=== PATIENT | female | born 1955 | race Hispanic/Latino ===

== ENCOUNTER 2017-07-26 07:42 | Day surgery (SDC) | payer MEDICARE ==
[~2017-07-26] VITALS: Ht 162.6 cm; Wt 93.0 kg
[2017-07-26 08:24] VITALS: BP 114/64
[2017-07-26] MEDS ORDERED: CLOP75TA32 PO (09:10)
[2017-07-26] MEDS ORDERED: LISI-617 PO (09:10)
[2017-07-26] MEDS ORDERED: ASPI-1026 PO (09:10)
[2017-07-26] MEDS ORDERED: LEVO50TA6 PO (09:10)
[2017-07-26] MEDS ORDERED: FURO-151 PO (09:10)
[2017-07-26] MEDS ORDERED: METF500T6 PO (09:10)
[2017-07-26] MEDS ORDERED: SIMV40TA5 PO (09:10)
[2017-07-26] MEDS ORDERED: TRAM50TA4 PO (09:10)
[2017-07-26] MEDS ORDERED: INSLAN SQ (09:10)
[2017-07-26] MEDS ORDERED: CITA-107 PO (09:10)
[2017-07-26] MEDS ORDERED: SODIUM CHLORIDE 0.9% 1000ML 1,000 ML IV ONE (09:22)
[2017-07-26] MEDS ORDERED: FENTANYL CITRATE PF 50 MCG/1 ML 2ML VIAL ONE (10:34)
[2017-07-26] MEDS ORDERED: PROPOFOL 10 MG/ML 20ML VIAL IV ONE (10:44)
== END 2017-07-26 11:20 | disposition home or self-care (01) ==
LOC: DAH 07:42
PROVIDERS: ATTEND Internal Medicine Gastroenterology
DX: K60.2 Anal fissure, unspecified (principal); Z68.41 Body mass index [BMI] 40.0-44.9, adult; I10 Essential (primary) hypertension; E78.5 Hyperlipidemia, unspecified; I25.10 Atherosclerotic heart disease of native coronary artery without angina pectoris; E11.9 Type 2 diabetes mellitus without complications; E03.9 Hypothyroidism, unspecified; Z86.73 Personal history of transient ischemic attack (TIA), and cerebral infarction without residual deficits; G43.909 Migraine, unspecified, not intractable, without status migrainosus; F32.9 Major depressive disorder, single episode, unspecified; Z95.1 Presence of aortocoronary bypass graft; Z79.899 Other long term (current) drug therapy
CPT/HCPCS: 45378; 82948 ×2; 93005; A4606; J2704; J3010; J7030

== ENCOUNTER 2017-07-27 11:45 | Emergency (ER) | payer MEDICARE ==
[~2017-07-27 11:45] MED LIST changes: -SODIUM CHLORIDE 0.9% 1000ML 1,000 ML IV ONE
[2017-07-27 12:12] LABS: BASOPHILS % (AUTO) 0.8 % (0.0-5.0); EOSINOPHILS % (AUTO) 2.1 % (0.0-8.0); HEMATOCRIT 35.1 % (36-48); LYMPHOCYTES % (AUTO) 37.9 % (21.0-51.0); MEAN CORPUSCULAR HEMOGLOBIN 31.4 pg (27.0-33.0); MEAN CORPUSCULAR HGB CONC 34.8 g/dL (32.0-36.0); MEAN CORPUSCULAR VOLUME 90.2 fL (79-99); MONOCYTES % (AUTO) 5.3 % (3.0-13.0); NEUTROPHILS % (AUTO) 53.9 % (40.0-77.0); NUCLEATED RED BLOOD CELLS 0.1 % (0.0-0.19); PLATELET COUNT (AUTO) 282 K/uL (130-400); RED BLOOD CELL COUNT(AUTO) 3.89 MIL/uL (4.00-5.50); RED CELL DISTRIBUTION WIDTH 14.1 % (11.0-15.5); WHITE BLOOD COUNT (AUTO) 6.2 K/uL (4.8-10.8)
[2017-07-27] MEDS ORDERED: NITROGLYCERIN 1GM/1 INCH PACKET TD ONE (12:17)
[2017-07-27] MEDS ORDERED: ASPIRIN 325 MG TABLET ONE (12:17)
[2017-07-27 12:42] LABS: CREATININE 0.6 mg/dL (0.5-1.5); POTASSIUM 3.8 mmol/L (3.5-5.1)
[2017-07-27 12:58] LABS: ALBUMIN 3.3 g/dL (3.5-5.0); BILIRUBIN,TOTAL 0.3 mg/dL (0.2-1.0); CREATINE KINASE MB 2.3 ng/mL (0.5-3.6); TOTAL PROTEIN, SERUM 6.6 g/dL (6.0-8.3)
== END 2017-07-27 16:19 | disposition home or self-care (01) ==
LOC: EDH 11:45
DX: R07.89 Other chest pain (principal); R05 Cough; I10 Essential (primary) hypertension; G43.909 Migraine, unspecified, not intractable, without status migrainosus; E11.9 Type 2 diabetes mellitus without complications; I25.810 Atherosclerosis of coronary artery bypass graft(s) without angina pectoris; E78.5 Hyperlipidemia, unspecified; Z86.73 Personal history of transient ischemic attack (TIA), and cerebral infarction without residual deficits; Z79.4 Long term (current) use of insulin; Z79.899 Other long term (current) drug therapy
CPT/HCPCS: 36415; 71045; 80053; 82550; 82553; 84484; 85025; 93005

== ENCOUNTER → 2017-07-27 | Day surgery (SDC) | payer MEDICARE ==
[~2017-07-27] VITALS: Ht 162.6 cm; Wt 93.0 kg
[~2017-07-27] MED LIST: ASPI-1026 PO; CITA-107 PO; CLOP75TA32 PO; FURO-151 PO; INSLAN SQ; LEVO50TA6 PO; LISI-617 PO; METF500T6 PO; SIMV40TA5 PO; SODIUM CHLORIDE 0.9% 1000ML 1,000 ML IV ONE; TRAM50TA4 PO
[2017-07-27 09:36] VITALS: BP 147/69
[2017-07-27 10:35] VITALS: BP 121/52
== END | disposition home or self-care (01) ==
LOC: SUH 08:21
PROVIDERS: ATTEND Internal Medicine Gastroenterology
DX: K57.30 Diverticulosis of large intestine without perforation or abscess without bleeding (principal); K92.1 Melena; K60.2 Anal fissure, unspecified; I10 Essential (primary) hypertension; E78.4 Other hyperlipidemia; I25.10 Atherosclerotic heart disease of native coronary artery without angina pectoris; E11.9 Type 2 diabetes mellitus without complications; E03.8 Other specified hypothyroidism; G43.909 Migraine, unspecified, not intractable, without status migrainosus; F32.9 Major depressive disorder, single episode, unspecified; Z86.73 Personal history of transient ischemic attack (TIA), and cerebral infarction without residual deficits; Z79.4 Long term (current) use of insulin; Z79.82 Long term (current) use of aspirin; Z79.899 Other long term (current) drug therapy; Z95.1 Presence of aortocoronary bypass graft; Z79.01 Long term (current) use of anticoagulants
CPT/HCPCS: 45378; 82948 ×2; A4606; J7030

== ENCOUNTER → 2018-07-03 | Outpatient (CLI) | payer MEDICARE ==
[~2018-07-03] MED LIST changes: +METF-444 PO; -METF500T6 PO
== END | disposition home or self-care (01) ==
LOC: RAH 10:47
PROVIDERS: ATTEND Internal Medicine
DX: R09.89 Other specified symptoms and signs involving the circulatory and respiratory systems (principal); E11.65 Type 2 diabetes mellitus with hyperglycemia
CPT/HCPCS: 93922

== ENCOUNTER 2020-11-05 06:03 | Day surgery (SDC) | payer MEDICARE ==
[2020-11-04 09:26] LABS: BASOPHILS % (AUTO) 0.5 % (0.0-5.0); EOSINOPHILS % (AUTO) 0.5 % (0.0-8.0); HEMATOCRIT 38.7 % (36-48); LYMPHOCYTES % (AUTO) 26.2 % (21.0-51.0); MEAN CORPUSCULAR HEMOGLOBIN 30.6 pg (27.0-33.0); MEAN CORPUSCULAR HGB CONC 32.6 g/dL (32.0-36.0); MEAN CORPUSCULAR VOLUME 93.9 fL (79-99); MONOCYTES % (AUTO) 3.7 % (3.0-13.0); NEUTROPHILS % (AUTO) 68.2 % (40.0-77.0); PLATELET COUNT (AUTO) 263 K/uL (130-400); RED BLOOD CELL COUNT(AUTO) 4.12 MIL/uL (4.00-5.50); RED CELL DISTRIBUTION WIDTH 13.4 % (11.0-15.5); WHITE BLOOD COUNT (AUTO) 8.5 K/uL (4.8-10.8)
[2020-11-04 09:38] LABS: CREATININE 0.7 mg/dL (0.5-1.5); POTASSIUM 4.1 mmol/L (3.5-5.1)
[2020-11-04 09:47] LABS: INR 0.94 (0.85-1.15); PROTHROMBIN TIME 10.3 SEC (9.6-11.6)
[2020-11-04 09:49] LABS: PARTIAL THROMBOPLASTIN TIME 23.6 SEC (26.3-35.5)
[2020-11-04 09:53] LABS: APPEARANCE,URINE Clear (CLEAR); BILIRUBIN,URINE Negative (NEGATIVE); COLOR,URINE Dark Yellow (YELLOW); GLUCOSE, URINE (UA) >=1000 mg/dL (NEGATIVE); KETONES,URINE Trace mg/dL (NEGATIVE); LEUKOCYTE ESTERASE ,URINE Negative (NEGATIVE); NITRATE,URINE Negative (NEGATIVE); OCCULT BLOOD,URINE Negative (NEGATIVE); PH,URINE 5.5 (5.0-8.0); PROTEIN,URINE POS 1+ mg/dL (NEGATIVE)
[2020-11-04 10:00] LABS: BACTERIA,URINE Rare /HPF (None Seen); RBC,URINE 0-1 /HPF (0-1); WBC,URINE 0-1 /HPF (0-1)
[2020-11-04 10:01] LABS: MUCUS,URINE Many LPF (None Seen); SQUAMOUS EPITHELIAL CELL,UR Moderate /HPF (0-2)
[2020-11-04 13:04] VITALS: BP 192/94
[~2020-11-05] VITALS: Ht 165.1 cm; Wt 98.8 kg
[2020-11-05] VITALS (13 sets, daily range): BP systolic 114–189; BP diastolic 53–97
[~2020-11-05 06:03] MED LIST changes: +0.9% NACL 500ML IV.SOLN 500 ML IV SCH; +BACL10TA PO; +DULA1.5P SQ; +GABA300C PO; -INSLAN SQ; +INSU300I SQ; -LEVO50TA6 PO; +LEVO88CA4 PO; -LISI-617 PO; +NAPR-1023 PO; +PRED10TA3 PO; +SIMV-46 PO; -SIMV40TA5 PO; +TRAM100T40 PO; -TRAM50TA4 PO; +TRAZ-187 PO
[2020-11-05] MEDS ORDERED: 0.9%NACL 1000ML 1,000 ML IV ONE (06:17)
[2020-11-05] MEDS ORDERED: NITROGLYCERIN 2 MG VIAL IV ONE (07:19)
[2020-11-05] MEDS ORDERED: HEPARIN 10,000 UNIT/10ML (1,000 UNIT/ML) VIAL ONE (07:19)
[2020-11-05] MEDS ORDERED: LIDOCAINE HCL 400MG/20ML VIAL ONE (07:19)
[2020-11-05] MEDS ORDERED: IOHEXOL 350 MG/ML 100ML INFUS..BTL IV ONE (07:19)
[2020-11-05] MEDS ORDERED: IOHEXOL-350 50ML VIAL IV ONE (07:19)
[2020-11-05] MEDS ORDERED: LABETALOL 20MG VIAL IV ONE (07:42)
[2020-11-05] MEDS ORDERED: HYDRALAZINE 20MG/ML VIAL ONE (08:12)
[2020-11-05] MEDS ORDERED: 0.9%NACL 10ML VIAL IVP SCH (08:30)
[2020-11-05] MEDS ORDERED: DEXTROSE 50%-WATER 50 ML DISP.SYRIN IV PRN (08:30)
[2020-11-05] MEDS ORDERED: INSULIN HUMULIN R 100 UNIT/ML 3ML SQ SCH (11:30)
== END 2020-11-05 18:20 | disposition home or self-care (01) ==
LOC: DAH 06:03
PROVIDERS: ATTEND Internal Medicine Cardiovascular Disease
DX: I25.118 Atherosclerotic heart disease of native coronary artery with other forms of angina pectoris (principal); Q25.0 Patent ductus arteriosus; I10 Essential (primary) hypertension; E11.9 Type 2 diabetes mellitus without complications; E78.5 Hyperlipidemia, unspecified; E03.9 Hypothyroidism, unspecified; J44.9 Chronic obstructive pulmonary disease, unspecified; F03.90 Unspecified dementia, unspecified severity, without behavioral disturbance, psychotic disturbance, mood disturbance, and anxiety; Z82.49 Family history of ischemic heart disease and other diseases of the circulatory system; Z86.73 Personal history of transient ischemic attack (TIA), and cerebral infarction without residual deficits; Z79.01 Long term (current) use of anticoagulants; Z79.82 Long term (current) use of aspirin
CPT/HCPCS: 36415; 71045; 80048; 81001; 82948 ×2; 85025; 85610; 85730; 93005; 93459; A4215; A4216; A4221; A4222; A4223 ×3; A4606; A4663; C1769; C1894; J0360; J1644; J3490 ×3; J7030; Q9965 ×2; Q9967 ×2; 36215; 75710

== ENCOUNTER 2021-08-10 17:26 | Emergency (ER) | payer MEDICARE ==
[~2021-08-10 17:26] MED LIST changes: -0.9% NACL 500ML IV.SOLN 500 ML IV SCH
[2021-08-10] MEDS ORDERED: ONDANSETRON 4MG INJ ONE (17:57)
[2021-08-10] MEDS ORDERED: KETOROLAC 15MG/ML VIAL (15MG/ML) ONE (17:57)
[2021-08-10] MEDS ORDERED: MORPHINE 4 MG SYG ONE (17:58)
[2021-08-10] MEDS ORDERED: 0.9%NACL 1000ML 1,000 ML IV ONE ×2 (17:58→18:00)
[2021-08-10] MEDS ORDERED: KETOROLAC 15MG/ML VIAL (15MG/ML) IV ONE (18:00)
[2021-08-10] MEDS ORDERED: ONDANSETRON 4MG INJ IVP ONE (18:00)
[2021-08-10] MEDS ORDERED: MORPHINE 4 MG SYG IVP ONE (18:00)
[2021-08-10 18:50] LABS: BASOPHILS % (AUTO) 0.4 % (0.0-5.0); EOSINOPHILS % (AUTO) 0.6 % (0.0-8.0); HEMATOCRIT 32.5 % (36-48); LYMPHOCYTES % (AUTO) 17.9 % (21.0-51.0); MEAN CORPUSCULAR HEMOGLOBIN 32.1 pg (27.0-33.0); MEAN CORPUSCULAR HGB CONC 34.5 g/dL (32.0-36.0); MEAN CORPUSCULAR VOLUME 93.1 fL (79-99); MONOCYTES % (AUTO) 6.3 % (3.0-13.0); NEUTROPHILS % (AUTO) 73.9 % (40.0-77.0); PLATELET COUNT (AUTO) 257 K/uL (130-400); RED BLOOD CELL COUNT(AUTO) 3.49 MIL/uL (4.00-5.50); RED CELL DISTRIBUTION WIDTH 13.3 % (11.0-15.5); WHITE BLOOD COUNT (AUTO) 9.5 K/uL (4.8-10.8)
[2021-08-10 19:01] LABS: CREATININE 0.7 mg/dL (0.5-1.5); POTASSIUM 3.2 mmol/L (3.5-5.1)
[2021-08-10 19:09] LABS: ALBUMIN 3.1 g/dL (3.5-5.0); BILIRUBIN,TOTAL 0.4 mg/dL (0.2-1.0); TOTAL PROTEIN, SERUM 6.5 g/dL (6.0-8.3)
[2021-08-10 21:33] LABS: APPEARANCE,URINE Clear (CLEAR); BILIRUBIN,URINE Negative (NEGATIVE); COLOR,URINE Yellow (YELLOW); GLUCOSE, URINE (UA) TRACE mg/dL (NEGATIVE); KETONES,URINE 40 mg/dL (NEGATIVE); LEUKOCYTE ESTERASE ,URINE Small (NEGATIVE); NITRATE,URINE Negative (NEGATIVE); OCCULT BLOOD,URINE Negative (NEGATIVE); PH,URINE 8.5 (5.0-8.0); PROTEIN,URINE POS 1+ mg/dL (NEGATIVE)
[2021-08-10 21:48] LABS: BACTERIA,URINE Few /HPF (None Seen); MUCUS,URINE Many LPF (None Seen); SQUAMOUS EPITHELIAL CELL,UR Few /HPF (0-2)
[2021-08-10] MEDS ORDERED: POTASSIUM BICARB/CIT AC 25 MEQ TABLET.EFF PO ONE (22:30)
[2021-08-10] MEDS ORDERED: CEFTRIAXONE 1G VIAL IVP ONE (22:30)
[2021-08-10] MEDS ORDERED: HYOS-27 SL (23:00)
[2021-08-10] MEDS ORDERED: IBUP-2070 PO (23:00)
[2021-08-10] MEDS ORDERED: MACR100 PO (23:00)
[2021-08-10 23:07] VITALS: BP 145/87
== END 2021-08-10 23:10 | disposition home or self-care (01) ==
LOC: EDH 17:26
DX: N30.00 Acute cystitis without hematuria (principal); E11.65 Type 2 diabetes mellitus with hyperglycemia; E87.6 Hypokalemia; R10.11 Right upper quadrant pain; Z79.1 Long term (current) use of non-steroidal anti-inflammatories (NSAID); Z79.52 Long term (current) use of systemic steroids; Z79.82 Long term (current) use of aspirin; Z79.899 Other long term (current) drug therapy; Z95.1 Presence of aortocoronary bypass graft
CPT/HCPCS: 36415; 74176; 76705; 80053; 81001; 83690; 84484; 85025; 93005; 96361; 96374; 96375; 99285; J0696; J1885; J2270; J2405; J7030

== ENCOUNTER → 2024-08-13 | Outpatient (CLI) | payer OTHER ==
[~2024-08-13] MED LIST changes: +HYOS-16 SL; +IBUP-2070 PO; -LEVO88CA4 PO; +LEVO88CA5 PO; +MACR100 PO; -NAPR-1023 PO; +NAPR-1194 PO; -TRAM100T40 PO; +TRAM100T56 PO
== END | disposition home or self-care (01) ==
LOC: SHCH 13:07
PROVIDERS: ATTEND Internal Medicine Cardiovascular Disease
DX: I35.0 Nonrheumatic aortic (valve) stenosis (principal); R42 Dizziness and giddiness
CPT/HCPCS: 93306